=== PATIENT | female | born 1960 | race Caucasian/White ===

== ENCOUNTER → 2021-10-18 | Outpatient (CLI) | payer MEDICARE | LOC: ORTHO 14:34 | PROVIDERS: ATTEND Orthopaedic Surgery | DX: M19.041 Primary osteoarthritis, right hand (principal); M79.604 Pain in right leg; I10 Essential (primary) hypertension; J44.9 Chronic obstructive pulmonary disease, unspecified | CPT/HCPCS: 99212 ==

== ENCOUNTER 2022-08-06 20:50 | Inpatient (IN) | payer OTHER, MEDICAID ==
[~2022-08-06] VITALS: Ht 152.4 cm; Wt 74.3 kg
[2022-08-06] MEDS ORDERED: methylPREDNISolone 125 MG (Solu-MEDROL) VIAL IVP ONE (21:15)
[2022-08-06] MEDS ORDERED: RT-ALBUTEROL SULF 2.5 MG/3 ML PRE-MIX VIAL INH STA (21:15)
[2022-08-06] MEDS ORDERED: RT-ALBUTEROL/IPRATROPIUM 3 ML (DUONEB) VIAL INH ONE (21:15)
[2022-08-06] MEDS ORDERED: RT-ALBUTEROL SULF 2.5 MG/3 ML PRE-MIX VIAL ONE (21:16)
[2022-08-06 21:17] LABS: BASOPHILS # (AUTO) 0.1 10^3/uL (0.0-0.1); BASOPHILS % (AUTO) 1 % (0-10); EOSINOPHILS # (AUTO) 0.1 10^3/uL (0.0-0.3); EOSINOPHILS % (AUTO) 1 % (0-10); HEMATOCRIT 49 % (35-52); HEMOGLOBIN 15.7 g/dL (11.5-16.0); LYMPHOCYTES # (AUTO) 1.3 10^3/uL (1.0-4.0); LYMPHOCYTES % (AUTO) 17 % (12-44); MEAN CORPUSCULAR HEMOGLOBIN 29 pg (25-34); MEAN CORPUSCULAR HGB CONC 32 g/dL (32-36); MEAN CORPUSCULAR VOLUME 89 fL (80-99); MEAN PLATELET VOLUME 9.6 fL (9.0-12.2); MONOCYTES # (AUTO) 0.7 10^3/uL (0.0-1.0); MONOCYTES % (AUTO) 9 % (0-12); NEUTROPHILS # (AUTO) 5.7 10^3/uL (1.8-7.8); NEUTROPHILS % (AUTO) 72 % (42-75); PLATELET COUNT 310 10^3/uL (130-400); WHITE BLOOD COUNT 7.9 10^3/uL (4.3-11.0)
--- NOTE | 2022-08-06 21:24 | Diagnostic Imaging Report ---
INDICATION: Shortness of breath. COMPARISON: None available. TECHNIQUE: Single radiograph of the chest dated August 06, 2022. FINDINGS: The cardiac silhouette is predominantly obscured. No right-sided pulmonary vascular congestion. The left pulmonary vasculature is obscured. A 5.6 cm rounded masslike density is noted within the left hilar region. This is associated with volume loss within the left lung with elevation of the left hemidiaphragm. Significant opacities are seen throughout the left lung. Additional patchy opacities are identified within the right mid and lower lung. No significant right pleural effusion. No pneumothorax. No acute osseous abnormality. IMPRESSION: Rounded masslike left hilar lesion with associated volume loss and extensive opacities throughout the left lung. This could relate to an obstructing mass lesion with resultant postobstructive atelectasis or pneumonia. A CT of the chest is recommended, preferably with contrast for further evaluation. Patchy opacities within the right mid and lower lung, potentially related to infiltrate or less likely edema. Additional findings as above. Dictated by: Dictated on workstation # [id number]
[2022-08-06] MEDS ORDERED: predniSONE 20 MG TAB PO ONE (21:30)
[2022-08-06 21:41] LABS: ALANINE AMINOTRANSFERASE 76 U/L (0-55); ALBUMIN 3.7 GM/DL (3.2-4.5); ALKALINE PHOSPHATASE 138 U/L (40-136); BUN/CREATININE RATIO 13; CALCIUM 9.5 MG/DL (8.5-10.1); CARBON DIOXIDE 27 MMOL/L (21-32); CHLORIDE 101 MMOL/L (98-107); CREATININE SERUM 0.78 MG/DL (0.60-1.30); GFR ESTIMATED 87; GLUCOSE 96 MG/DL (70-105); POTASSIUM 4.2 MMOL/L (3.6-5.0); SODIUM 140 MMOL/L (135-145)
--- NOTE | 2022-08-06 22:10 | ED Respiratory ---
General Chief Complaint: Respiratory Problems Stated Complaint: COUGH/WHEEZING/SOA/DIZZY/HEADACHE Nursing Triage Note: PT ARRIVAL TO ER VIA PRIVATE VEHICLE FROM HOME WITH COMPLAINT OF SOA X1 WEEK WITH SIGNIFICANTLY WORSENING SOA THIS EVENING. PT ARRIVAL WITH RESPIRATORY RATE OF 36, WITH DIMINISHED/WHEEZES BILATERALLY. PT ALSO COMPLAINS OF SOME CHEST PAIN, AFTER FALL THREE DAYS AGO. PATIENT DOES SMOKE 1/2 PACK PER DAY. PT DOES HAVE COPD. PATIENT STATES THAT SHE DOES ALBUTEROL TREATMENTS AT HOME X3 TODAY WITHOUT IMPROVEMENT. (JERED MACE APRN) History of Present Illness Date Seen by Provider: Aug 06, 2022 Time Seen by Provider: 21:00 Initial Comments Patient is a 62-year-old female who presents to the emergency department with shortness of air x1 week. She states the shortness of air acutely worsened this evening. Patient states she has been taking albuterol nebulizer treatments at home with minimal improvement. Has a history of COPD and currently smokes. She states she was given a prescription for antibiotics as well as steroids a few weeks ago which she finished. She states her cough is nonproductive. No recent fever. She does have some mild persistent chest pain that is worse with coughing. No known recent sick contacts. (JERED MACE APRN) Allergies and Home Medications Allergies Coded Allergies: aspirin (Verified Allergy, Unknown, 08/06/22) Patient Home Medication List Home Medication List Reviewed: Yes (JERED MACE APRN) Review of Systems Review of Systems Constitutional: no symptoms reported EENTM: no symptoms reported Respiratory: see HPI, cough, dyspnea on exertion, short of breath, wheezing Cardiovascular: see HPI, chest pain Gastrointestinal: no symptoms reported Genitourinary: no symptoms reported Musculoskeletal: no symptoms reported Skin: no symptoms reported Psychiatric/Neurological: No Symptoms Reported Hematologic/Lymphatic: No Symptoms Reported (JERED MACE APRN) Past Lvwugaq-Vvlvdv-Xzmcaf Hx Patient Social History Tobacco Use?: Yes Tobacco type used: Cigarettes Smoking Status: Current Everyday Smoker Use of E-Cig and/or Vaping dev: No Substance use?: No Alcohol Use?: No Pt feels they are or have been: No (JERED MACE APRN) Immunizations Up To Date Influenza Vaccine Up-to-Date: No; Not Current Second COVID19 Vaccination Monty: 03/24 COVID19 Vaccine Rail Bonder: DESIRAE (JERED MACE APRN) Physical Exam Vital Signs - First Documented 08/06/22 08/06/22 20:55 20:58 Temp 37.7 Pulse 92 Resp 36 B/P (MAP) 170/106 (127) Pulse Ox 81 O2 Delivery Nasal Cannula O2 Flow Rate 2.00 (NATHALIE MELCHOR MD) Capillary Refill : Less Than 3 Seconds (JERED MACE APRN) Height: '" Weight: lbs. oz. kg; BMI Method: General Appearance: WD/WN, moderate distress HEENT: PERRL/EOMI, normal ENT inspection, TMs normal, pharynx normal Neck: non-tender, full range of motion Respiratory: respiratory distress, wheezing, expiration Cardiovascular: regular rate, rhythm Gastrointestinal: normal bowel sounds, non tender, soft Extremities: normal range of motion, non-tender Neurologic/Psychiatric: no motor/sensory deficits, alert, normal mood/affect, oriented x 3 Skin: normal color, warm/dry (JERED MACE APRN) Progress/Results/Core Measures Suspected Sepsis SIRS Temperature: Pulse: 92 Respiratory Rate: 36 Laboratory Tests 08/06/22 21:05: White Blood Count 7.9 Blood Pressure 170 /106 Mean: 127 Laboratory Tests 08/06/22 21:05: Creatinine 0.78, Platelet Count 310, Total Bilirubin 1.0 (JERED MACE APRN) Results/Orders Lab Results Laboratory Tests Test 08/06/22 21:05 08/06/22 21:26 Range/Units White Blood Count 7.9 4.3-11.0 10^3/uL Red Blood Count 5.49 H 3.80-5.11 10^6/uL Hemoglobin 15.7 11.5-16.0 g/dL Hematocrit 49 35-52 % Mean Corpuscular Volume 89 80-99 fL Mean Corpuscular Hemoglobin 29 25-34 pg Mean Corpuscular Hemoglobin Concent 32 32-36 g/dL Red Cell Distribution Width 14.0 10.0-14.5 % Platelet Count 310 130-400 10^3/uL Mean Platelet Volume 9.6 9.0-12.2 fL Immature Granulocyte % (Auto) 0 % Neutrophils (%) (Auto) 72 42-75 % Lymphocytes (%) (Auto) 17 12-44 % Monocytes (%) (Auto) 9 0-12 % Eosinophils (%) (Auto) 1 0-10 % Basophils (%) (Auto) 1 0-10 % Neutrophils # (Auto) 5.7 1.8-7.8 10^3/uL Lymphocytes # (Auto) 1.3 1.0-4.0 10^3/uL Monocytes # (Auto) 0.7 0.0-1.0 10^3/uL Eosinophils # (Auto) 0.1 0.0-0.3 10^3/uL Basophils # (Auto) 0.1 0.0-0.1 10^3/uL Immature Granulocyte # (Auto) 0.0 0.0-0.1 10^3/uL Sodium Level 140 135-145 MMOL/L Potassium Level 4.2 3.6-5.0 MMOL/L Chloride Level 101 98-107 MMOL/L Carbon Dioxide Level 27 21-32 MMOL/L Anion Gap 12 5-14 MMOL/L Blood Urea Nitrogen 10 7-18 MG/DL Creatinine 0.78 0.60-1.30 MG/DL Estimat Glomerular Filtration Rate 87 BUN/Creatinine Ratio 13 Glucose Level 96 70-105 MG/DL Calcium Level 9.5 8.5-10.1 MG/DL Corrected Calcium 9.7 8.5-10.1 MG/DL Total Bilirubin 1.0 0.1-1.0 MG/DL Aspartate Amino Transf (AST/SGOT) 51 H 5-34 U/L Alanine Aminotransferase (ALT/SGPT) 76 H 0-55 U/L Alkaline Phosphatase 138 H 40-136 U/L Troponin I < 0.028 <0.028 NG/ML Total Protein 8.0 6.4-8.2 GM/DL Albumin 3.7 3.2-4.5 GM/DL Influenza Type A (RT-PCR) Not Detected Not Detecte Influenza Type B (RT-PCR) Not Detected Not Detecte SARS-CoV-2 RNA (RT-PCR) Not Detected Not Detecte (NATHALIE MELCHOR MD) Medications Given in ED Current Medications Medications Dose Ordered Sig/Araceli Route Start Time Stop Time Status Last Admin Dose Admin Albuterol/ Ipratropium 3 ml ONCE ONCE INH 08/06/22 21:15 08/06/22 21:16 DC 08/06/22 21:11 3 ML Ceftriaxone Sodium/Dextrose 50 ml @ 100 mls/hr ONCE ONCE IV 08/07/22 00:15 08/07/22 00:44 DC 08/07/22 00:22 100 MLS/HR Ibuprofen 600 mg ONCE ONCE PO 08/06/22 22:30 08/06/22 22:31 DC 08/06/22 22:21 600 MG Iohexol 75 ml ONCE ONCE IV 08/06/22 22:15 08/06/22 22:16 DC 08/06/22 22:12 75 ML Prednisone 40 mg ONCE ONCE PO 08/06/22 21:30 08/06/22 21:31 DC 08/06/22 21:32 40 MG Sodium Chloride 10 ml NEEDED PRN IV 08/06/22 22:15 08/07/22 01:20 DC 08/06/22 22:12 10 ML Sodium Chloride 100 ml ONCE ONCE IV 08/06/22 22:15 08/06/22 22:16 DC 08/06/22 22:12 80 ML (NATHALIE MELCHOR MD) Vital Signs/I&O 08/06/22 08/06/22 08/06/22 08/06/22 20:55 20:58 20:58 21:09 Temp 37.7 Pulse 92 Resp 36 B/P (MAP) 170/106 (127) Pulse Ox 81 97 O2 Delivery Nasal Cannula Room Air Room Air Nasal Cannula O2 Flow Rate 2.00 2.00 (NATHALIE MELCHOR MD) Vital Signs/I&O Capillary Refill : Less Than 3 Seconds (JERED MACE APRN) Blood Pressure Mean: 127 Progress Note : Progress Note Patient is nontoxic and well-hydrated on exam. She has having moderate respiratory distress with audible wheezing and tachypnea. She is markedly hypoxic upon arrival to the room at 68%. Patient was placed on 6 L of oxygen via nasal cannula and rapidly had an increase in her oxygen saturations to the mid 90s. She was rapidly titrated to 2 L while maintaining a normal oxygen saturation in the upper 90s. She also had significant improvement in her subjective dyspnea and was able to speak in more complete sentences. Vital signs are otherwise largely unremarkable. Patient was given a DuoNeb with some improvement in aeration. Afterwards an hour-long albuterol nebulized treatment was given with progressively improved br eath sounds and decreased work of breathing. Laboratory evaluation largely unremarkable. There is no leukocytosis. Nonspecific transaminitis noted. No other metabolic derangements appreciated. Troponin is negative. EKG without acute ischemic change or arrhythmia. Chest x-ray shows diffuse patchy infiltrates as well as a rounded masslike structure in the left hilar region. I t was recommended a CT of the chest with contrast be obtained for further evaluation. IV access was difficult to obtain initially. I placed a 20-gauge IV with ultrasound guidance in the right basilic vein. CT notable for large left upper lobe mass there is some postobstructive pneumonitis. Patient still requiring 2 L of oxygen. She was given Rocephin. Will be admitted to the hospitalist for further treatment. Patient updated on plan of care and understanding verbalized. (JERED MACE APRN) ECG EKG : EKG Time: 21:10 Rate: 92 Rhythm: Normal Sinus ECG Impression: Nonspecific Changes (JERED MACE APRN) Departure Impression Primary Impression: COPD exacerbation Additional Impression: Mass of upper lobe of left lung Disposition: ADMITTED INPATIENT Condition: Stable Admissions Decision to Admit/Date: Aug 07, 2022 Time/Decision to Admit Time: 00:20 (JERED MACE APRN) Departure-Patient Inst. Referrals: NO,LOCAL PHYSICIAN (PCP/Family) Primary Care Physician ATTENDING PHYSICIAN NOTE: I was physically present as attending physician in the emergency department during the care of this patient, but I was not directly involved in the decision making or delivery of care for this patient. (NATHALIE MELCHOR MD) JERED MACE APRN Aug 06, 2022 22:10 NATHALIE MELCHOR MD Aug 07, 2022 06:20
[2022-08-06] MEDS ORDERED: HOLD METFORMIN - RECEIVED CONTRAST 20 ML VIAL IV SCH (22:15)
[2022-08-06] MEDS ORDERED: NS 100 ML (IVPB) BAG IV ONE (22:15)
[2022-08-06] MEDS ORDERED: IOHEXOL 350 MG/ML 100 ML (OMNIPAQUE 350) VIAL IV ONE (22:15)
[2022-08-06] MEDS ORDERED: CATHETER FLUSH 10 ML SYR IV PRN (22:15)
[2022-08-06] MEDS ORDERED: IBUPROFEN 600 MG (MOTRIN) TAB PO ONE (22:30)
[2022-08-07] VITALS (9 sets, daily range): BP systolic 135–161; BP diastolic 77–111
[2022-08-07] MEDS ORDERED: cefTRIAXone 1 GM PRE-MIX 50 ML IV ONE (00:15)
[2022-08-07] MEDS ORDERED: RT-ALBUTEROL/IPRATROPIUM 3 ML (DUONEB) VIAL INH PRN (01:45)
[2022-08-07] MEDS: CATHETER FLUSH 10 ML SYR IVP SCH ×2 (06:06→14:40)
[2022-08-07] MEDS: RT-ALBUTEROL/IPRATROPIUM 3 ML (DUONEB) VIAL INH SCH ×3 (07:16→13:39)
--- NOTE | 2022-08-07 08:12 | Diagnostic Imaging Report ---
PROCEDURE: CT chest with contrast only. TECHNIQUE: Multiple contiguous axial images were obtained through the chest after administration of intravenous contrast. Auto Exposure Controls were utilized during the CT exam to meet ALARA standards for radiation dose reduction. INDICATION: 62-year-old female, abnormal chest radiograph obtained for shortness of breath. CORRELATION STUDY: Chest radiograph 08/06/2022 FINDINGS: There is presence of a large left upper lobe/mediastinal mass. There is extensive likely postobstructive consolidation involving a predominantly anterior segment left upper lobe. The quantification of the mass is somewhat indeterminate. However, this measures approximate 9 x 7 x 5.5 cm. There is significant compression and occlusion left upper lobe bronchus. Extensive low density perhaps a chronic, left hilar, subcarinal and mediastinal lymphadenopathy. Additionally, mass that surrounds and narrows the additional bronchovascular structures including the left main pulmonary artery. Mildly prominent right hilar lymphadenopathy. Mass directly extends into the AP window and mediastinum and likely includes a portion of the left pericardium. Right lung with scattered patchy infiltrate-like opacities of the right upper lobe with somewhat of a reticulonodular interstitial changes. There is presence of moderate left pleural effusion. Very mild nodular thickening bilateral adrenal glands. Osseous structures demonstrate no acute findings. No desiree lytic or destructive change. IMPRESSION: 1. Large left upper lobe/mediastinal mass measuring approximately 9 cm in size. Concerning for neoplasm. Additionally, there is a rather extensive left hilar and mediastinal as well as subcarinal lymphadenopathy. Direct extension into the mediastinum of this mass. 2. There is extensive attenuation of bronchovascular structures leading through the right upper lung. This results in rather significant compression and mass effect upon the abdominal structures which result in postobstructive atelectasis and/or pneumonitis. 3. Reticulonodular interstitial changes of the right upper lobe, concerning for potential lymphangitic spread of tumor. 4. Moderate left pleural effusion. Initial report was provided by [employer]. Dictated by: Dictated on workstation # [id number]
[2022-08-07] MEDS ORDERED: ACETAMINOPHEN 325 MG TABLET PO PRN (08:45)
[2022-08-07] MEDS ORDERED: diphenhydrAMINE 50 MG/ML INJ (BENADRYL) IVP PRN (08:45)
[2022-08-07] MEDS ORDERED: BISACODYL 10 MG SUPP (DULCOLAX) PR PRN (08:45)
[2022-08-07] MEDS ORDERED: MILK OF MAGNESIA 400 MG/5 ML 30 ML UDC PO PRN (08:45)
[2022-08-07] MEDS ORDERED: MELATONIN 3 MG TABLET PO PRN (08:45)
[2022-08-07] MEDS ORDERED: ONDANSETRON 4 MG (ZOFRAN) ORAL DISSOLVE TAB PO PRN (08:45)
[2022-08-07] MEDS ORDERED: diphenhydrAMINE 25 MG TAB (BENADRYL) PO PRN (08:45)
[2022-08-07] MEDS ORDERED: LACTULOSE SYRUP 10GM/15ML (ENULOSE) 30ML UDC PO PRN (08:45)
[2022-08-07] MEDS ORDERED: CALCIUM CARBONATE 500 MG (TUMS) TAB.CHEW PO PRN (08:45)
[2022-08-07] MEDS ORDERED: ANTACID SUSP 30 ML UDC (MYLANTA) PO PRN (08:45)
[2022-08-07] MEDS ORDERED: ONDANSETRON 4 MG/2 ML (SDV) Z0FRAN IV PRN (08:45)
[2022-08-07] MEDS ORDERED: polyethylene glycoL POWDER 17 GM (MIRALAX) PACK PO PRN (08:45)
[2022-08-07] MEDS ORDERED: SENNOSIDES 8.6 MG (SENOKOT) TAB PO SCH (09:00)
[2022-08-07] MEDS ORDERED: DOCUSATE SODIUM 100 MG (COLACE) CAP PO SCH (09:00)
[2022-08-07] MEDS ORDERED: SERT-412 PO (09:47)
[2022-08-07] MEDS ORDERED: IBUP-2473 PO (09:47)
[2022-08-07] MEDS ORDERED: LISI10TA25 PO (09:47)
[2022-08-07] MEDS ORDERED: MTP100TCR PO (09:47)
[2022-08-07] MEDS ORDERED: GBPN600T PO (09:47)
[2022-08-07] MEDS ORDERED: RT-ALBUINH INH (09:47)
[2022-08-07] MEDS ORDERED: FLUT1BLS8 INH (09:47)
[2022-08-07] MEDS ORDERED: SERT-414 PO (09:47)
[2022-08-07] MEDS ORDERED: TIOT18CA2 INH (09:47)
[2022-08-07] MEDS ORDERED: SERTRALINE 100 MG (ZOLOFT) TAB PO SCH (11:00)
[2022-08-07] MEDS ORDERED: SERTRALINE 50 MG (ZOLOFT) TABLET PO SCH (11:00)
[2022-08-07] MEDS ORDERED: IBUPROFEN 800 MG (MOTRIN) TAB PO PRN (11:00)
[2022-08-07] MEDS ORDERED: lisINopril 10 MG (PRINIVIL) TABLET PO SCH (11:00)
[2022-08-07] MEDS ORDERED: GABAPENTIN 600 MG (NEURONTIN) TAB PO SCH (11:00)
[2022-08-07] MEDS ORDERED: meTOprolol SUCCINATE 100 MG (TOPROL XL) TAB PO SCH (11:00)
--- NOTE | 2022-08-07 12:04 | Short Stay Summary-Hospitalist ---
ROSENDA ARNETT A MED STUDENT 08/07/22 1203: History of Present Illness HPI/Chief Complaint Vi is a 62 yo female who was admitted for COPD exacerbation. Pt has hx of COPD and is a current smoker. Pt reported she had worsening SOA for the last week and was taking her spiriva and duoneb treatments with no relief. She also reported increased cough and sputum production. She was given steroids and an abx a week ago and stated it did not help, her symptoms just continued to worsen. In the ED she was found to have oxygen saturations in the 60's and was placed on 6L via NC with an increase in oxygen saturations to the 90s. She remained on 2L NC throughout hospital stay with adequate saturations. Oxygen study will be done prior to d/c to establish baseline oxygen use for home. Pt was found to have a left upper lung mass on CXR that was further imaged via CT and confirmed a mass with post obstructive peumonitis. Pt was made aware of this mass and requested it be worked up at either [facility] or [facility] in [place], [place], as it would require a bronchoscopy. Referral sent to this facility for pulmonology. Pt's remained medically stable throughout hospital course, so she was discharged home. Source: patient, family Exam Limitations: no limitations Date Seen 08/07/22 Time Seen by a Provider: 07:50 Attending Physician No,Local Physician PCP Admitting Physician: Jennifer Garcia MD Attending Physician: Emerson Hoffman MD Referring Physician Date of Admission Aug 07, 2022 at 00:41 Home Medications & Allergies Home Medications Reviewed patient Home Medication Reconciliation performed by pharmacy medication reconciliations energy conservation technician and/or nursing. Patients Allergies have been reviewed. Allergies Allergies Coded Allergies aspirin (Verified Allergy, Unknown, 08/06/22) Past Medical/Social/Family Hx Patient Social History Tobacco Use?: Yes Tobacco type used: Cigarettes Smoking Status: Current Everyday Smoker Use of E-Cig and/or Vaping dev: No Substance use?: Yes Substance type: Marijuana Substance frequency: Daily Alcohol Use?: No Pt stated abuse/neglect: No Immunizations Up To Date Influenza Vaccine Up-to-Date: No; Not Current Second COVID19 Vaccination Monty: 03/24 Tetanus Booster (TDap): More Than 5 Years Current Status Advance Directives: No Communicates: Verbally Primary Language: Mongolian Preferred Spoken Language: Mongolian Is interpretation needed?: No Implanted or Applied Medical D: None Review of Systems Constitutional: chills; No fever; malaise EENTM: No blurred vision, No double vision, No nose congestion Respiratory: cough, dyspnea on exertion, phlegm Cardiovascular: No chest pain, No palpitations Gastrointestinal: No constipation, No diarrhea, No nausea, No vomiting Genitourinary: No dysuria, No frequency Musculoskeletal: No back pain, No joint pain Skin: No change in color, No lesions, No lumps Psychiatric/Neurological: Denies Headache, Denies Numbness Physical Exam Physical Exam Vital Signs Vital Signs - First Documented 08/06/22 08/06/22 20:55 20:58 Temp 37.7 Pulse 92 Resp 36 B/P (MAP) 170/106 (127) Pulse Ox 81 O2 Delivery Nasal Cannula O2 Flow Rate 2.00 Capillary Refill : Less Than 3 Seconds Height, Weight, BMI Height: '" Weight: lbs. oz. kg; 31.99 BMI Method: General Appearance: No Apparent Distress, WD/WN HEENT: PERRL/EOMI, Moist Mucous Membranes Neck: Full Range of Motion, Normal Inspection Respiratory: Chest Non Tender, Rhonci, Wheezing Cardiovascular: Regular Rate, Rhythm, No Murmur Gastrointestinal: Normal Bowel Sounds, Non Tender Back: Normal Inspection, No Vertebral Tenderness Extremity: Normal Capillary Refill, Non Tender, No Pedal Edema Neurologic/Psychiatric: Alert, Oriented x3, Normal Mood/Affect Skin: Normal Color, Warm/Dry Results Results/Procedures Labs Laboratory Tests 08/06/22 21:05 Patient resulted labs reviewed. Imaging: Reviewed Imaging Films, Reviewed Imaging Report Short Stay Diagnosis Discharge Diagnosis-Short Stay Admission Diagnosis COPD exacerbation Final Discharge Diagnosis COPD exacerbation with incidental left upper lobe lung mass finding Conclusion Plan Referral sent to [facility] for pulmonology consult for possible bronchoscopy to work up lung mass. Home O2 study being done to establish baseline level of oxygen use. Will send pt home with prednisone taper F/u with primary care physician. Diagnosis/Problems Diagnosis/Problems (1) COPD exacerbation Status: Acute Assessment & Plan: Will send prednisone taper to pharmacy Continue spiriva daily, albuterol and duonebs as needed (2) Mass of upper lobe of left lung Status: Acute Assessment & Plan: Referral sent to [place], [place] for pulmonology consult EMERSON HOFFMAN MD 08/07/22 1900: History of Present Illness Time Seen by a Provider: 10:30 Short Stay Diagnosis Conclusion Plan Referral to pulmonology for urgent bronchoscopy with biopsy due to lung mass. Set up with home oxygen. Sent home with prednisone taper. Follow up with PCP. Diagnosis/Problems Diagnosis/Problems (1) COPD exacerbation Status: Acute Assessment & Plan: Will send prednisone taper to pharmacy Continue spiriva daily, albuterol and duonebs as needed (2) Mass of upper lobe of left lung Status: Acute Assessment & Plan: Referral sent to [place], [place] for pulmonology consult, bronchoscopy with biopsy (3) Current smoker Status: Chronic (4) HTN (hypertension) Status: Chronic (5) Obesity Status: Chronic Supervisory-Addendum Brief Verification & Attestation Participated in pt care: history, MDM, physical Personally performed: exam, history, MDM, supervision of care Care discussed with: Medical Student Procedures: n/a Results interpretation: Verified all documentation A medical student performed and documented this service in my presence. I reviewed and verified all information documented by the medical student and made modifications to such information, when appropriate. I personally performed the physical exam and medical decision making. ROSENDA ARNETT MED STUDENT Aug 07, 2022 12:03 EMERSON HOFFMAN MD Aug 07, 2022 19:00
[2022-08-07] MEDS ORDERED: PRED10TA22 PO (12:49)
== END 2022-08-07 19:00 | disposition home or self-care (01) | DRG 192 ==
LOC: EDUNIT# 20:50 → ER 20:54 → 4TH 08-07 00:41
PROVIDERS: ADMIT Family Medicine; ATTEND Internal Medicine
DX: J44.1 Chronic obstructive pulmonary disease with (acute) exacerbation (principal); F17.210 Nicotine dependence, cigarettes, uncomplicated; R91.8 Other nonspecific abnormal finding of lung field; I10 Essential (primary) hypertension; E66.9 Obesity, unspecified; Z20.822 Contact with and (suspected) exposure to COVID-19; Z68.32 Body mass index [BMI] 32.0-32.9, adult
CPT/HCPCS: 36415; 71045; 71260; 80053; 84484; 85025; 87636; 93005; 93041; 94640; 94760; 94761; G0378